=== PATIENT | male | born 1970 | race Caucasian/White ===

== ENCOUNTER 2017-06-18 11:37 | Emergency (ER) | payer OTHER ==
[2017-06-18 11:44] VITALS: TEMP 97.3; O2SAT 96
--- NOTE | 2017-06-18 12:08 | EDPHY ---
H & P Stated Complaint: Migraine this morning Time Seen by Provider: 06/18/17 12:03 HPI/ROS: CHIEF COMPLAINT: Increasing headaches HISTORY OF PRESENT ILLNESS: The patient has a history of reported migraine headaches which have been increasing in severity over the past several weeks to months. The patient is describing severe episodes of a frontal headache with associated photophobia. Along with these headaches he is having some cognitive dysfunction and confusion. The patient has not been evaluated by neurologist. He does have a history of a chronic traumatic brain injury. The patient also has a history of depression and anxiety and is on medications for this condition. The patient was referred to the emergency department for neuro imaging given the increasing frequency his symptoms. The patient denies any recent travel outside the [place], fever, cough or congestion. REVIEW OF SYSTEMS: A comprehensive 10 point review of systems is otherwise negative aside from elements mentioned in the history of present illness. Source: Patient Exam Limitations: No limitations - Personal History Current Tetanus Diphtheria and Acellular Pertussis (TDAP): Yes - Medical/Surgical History Other PMH: DEPRESSION/ANGER ISSUES. TBI. migraines - Social History Smoking Status: Former smoker - Physical Exam Exam: General Appearance: Alert, no distress Eyes: Pupils equal and round no pallor or injection ENT, Mouth: Mucous membranes moist Respiratory: There are no retractions, lungs are clear to auscultation Cardiovascular: Regular rate and rhythm Gastrointestinal: Abdomen is soft and nontender, no masses, bowel sounds normal Neurological: 5/5 strength all 4 extremities, cranial nerves 2-12 intact, sensation intact to light touch Skin: Warm and dry, no rashes Musculoskeletal: No meningeal symptoms Extremities: symmetrical, full range of motion Constitutional: Initial Vital Signs Temperature (C) 36.3 C 06/18/17 11:42 Heart Rate 92 06/18/17 11:42 Respiratory Rate 18 06/18/17 11:42 Blood Pressure 150/108 H 06/18/17 11:42 O2 Sat (%) 96 06/18/17 11:42 O2 Delivery Mode Room Air Allergies/Adverse Reactions: No Known Allergies Allergy (Verified 06/18/17 11:40) Home Medications: Medication Instructions Recorded Escitalopram Oxalate [Lexapro] 10 mg PO 06/18/17 Eszopiclone [Lunesta] 2 mg PO 06/18/17 FLUoxetine [PROzac] 10 mg PO 06/18/17 Medical Decision Making Procedures: The patient is referred to the emergency department for evaluation of increasing frequency of chronic migraine headaches. The patient has no evidence of any acute neurologic findings on his exam. He is neurologically intact without meningeal symptoms. The patient was taken for an MRI of the brain with and without contrast demonstrate no acute abnormality. The patient is on a number of medications chronically for anxiety and chronic headaches. The patient will be referred to our on-call neurologist for further evaluation of his ongoing symptoms. The patient has been advised to return to the ED for acutely worsening symptoms or other concerns. ED Course/Re-evaluation: The patient presents the emergency department for evaluation of a chronic headache syndrome. The patient is afebrile. He has no meningeal symptoms. He is neurologically intact. - Data Points Laboratory Results: Laboratory Results 06/18/17 12:10 06/18/17 12:10 06/18/17 06/18/17 12:10 12:10 WBC 4.40 10^3/uL 10^3/uL (3.80-9.50) RBC 4.95 10^6/uL 10^6/uL (4.40-6.38) Hgb 15.5 g/dL g/dL (13.7-17.5) Hct 45.7 % % (40.0-51.0) MCV 92.3 fL fL (81.5-99.8) MCH 31.3 pg pg (27.9-34.1) MCHC 33.9 g/dL g/dL (32.4-36.7) RDW 12.5 % % (11.5-15.2) Plt Count 320 10^3/uL 10^3/uL (150-400) MPV 8.3 fL L fL (8.7-11.7) Neut % (Auto) 58.0 % % (39.3-74.2) Lymph % (Auto) 32.0 % % (15.0-45.0) Barnes % (Auto) 6.6 % % (4.5-13.0) Eos % (Auto) 1.6 % % (0.6-7.6) Baso % (Auto) 1.6 % % (0.3-1.7) Nucleat RBC Rel Count 0.0 % % (0.0-0.2) Absolute Neuts (auto) 2.55 10^3/uL 10^3/uL (1.70-6.50) Absolute Lymphs (auto) 1.41 10^3/uL 10^3/uL (1.00-3.00) Absolute Monos (auto) 0.29 10^3/uL L 10^3/uL (0.30-0.80) Absolute Eos (auto) 0.07 10^3/uL 10^3/uL (0.03-0.40) Absolute Basos (auto) 0.07 10^3/uL 10^3/uL (0.02-0.10) Absolute Nucleated RBC 0.00 10^3/uL 10^3/uL (0-0.01) Immature Gran % 0.2 % % (0.0-1.1) Immature Gran # 0.01 10^3/uL 10^3/uL (0.00-0.10) Sodium 148 mEq/L H mEq/L (135-145) Potassium 4.3 mEq/L mEq/L (3.5-5.2) Chloride 108 mEq/L mEq/L (97-110) Carbon Dioxide 26 mEq/l mEq/l (22-31) Anion Gap 14 mEq/L mEq/L (8-16) BUN 12 mg/dL mg/dL (7-23) Creatinine 0.7 mg/dL mg/dL (0.7-1.3) Estimated GFR > 60 Glucose 89 mg/dL mg/dL (70-100) Calcium 8.9 mg/dL mg/dL (8.5-10.4) Departure - Departure Disposition: Home, Routine, Self-Care Clinical Impression: Migraines Condition: Good Instructions: Acute Headache (ED) Additional Instructions: 1. Please follow up with the neurologist, Dr. Acevedo, you have been referred to for further evaluation of your headaches. 2. Your brain MRI is normal without any acute abnormalities. Referrals: Brody Acevedo DO [Medical Doctor] - As per Instructions
[2017-06-18 12:26] LABS: PLATELET COUNT 320 10^3/uL (150-400)
[2017-06-18] MEDS ORDERED: GADOBUTROL 10 ML VIAL IVP ONE (12:57)
[2017-06-18 13:45] VITALS: BP 133/90; PULSE 102; RESP 16
== END 2017-06-18 13:55 | disposition home or self-care (01) ==
DX: G43.909 Migraine, unspecified, not intractable, without status migrainosus (principal); Z87.891 Personal history of nicotine dependence
CPT/HCPCS: A9585